=== PATIENT | male | born 1955 | race African-American/Black ===

== ENCOUNTER 2016-03-02 19:47 | Emergency (ER) | payer OTHER ==
[~2016-03-02] VITALS: Ht 175.3 cm; Wt 87.3 kg
--- NOTE | 2016-03-02 19:52 | ED.REPORT ---
HPI-Chest Pain 40 and Over Date of Service Mar 02, 2016 ED Provider: Melvin Miller DO A 61 year old male with a history of diabetes and no cardiac history is brought to the ED via EMS due to palpitations. The pt smoked an unknown substance with friends today when he suddenly felt palpitations and right flank pain. EMS arrived to find his heart rate at 150 in sinus tachycardia. His heart rate was approximately 100 upon arrival at the ED. The pt denies chest pain, shortness of breath, or dizziness, though he has been experiencing a cough recently. He believes that his symptoms are due to someone "slipping him something," and states that his symptoms "feel like a high." He denies a history of kidney stones. Nursing Notes Stated Complaint: PALPITATIONS Chief Complaint: General Complaint Nursing Notes Reviewed: Yes Allergies: Coded Allergies: No Known Allergies (Unverified , 03/02/16) General Time Seen by MD: 19:52 Chief Complaint Other (Palpitations) Hx Obtained From: Patient, EMS Arrived By: Ambulance Sudden in Onset?: Yes Onset Occurred: 31 - 45 minutes ago Recent Healthcare: No recent doctor visit, No recent hospitalization Similar Sx Previous: No Past Medical History Past Medical History diabetes Past Surgical History none reported Smoking History Current Every Day Smoker Social History admits to alcohol use lives in [place] Ambulatory Status Independent Review of Systems Constitutional: Denies: Fever Respiratory: Reports: Non-productive cough, Denies: Shortness of breath Cardiovascular: Reports: Palpitations, Denies: Chest pain GI: Denies: Abdominal pain, Nausea, Vomiting Musculoskeletal: Denies: Back pain, Neck pain Skin: Denies Rash Neurologic: Denies: Dizziness Complete sys rev & neg: except as marked. Female: Reports: Flank pain (right) Physical Exam Initial Vital Signs Vital Signs (First) Date Time Temp Pulse Resp B/P Pulse Ox O2 Delivery O2 Flow Rate FiO2 03/02/16 19:55 36.7 111 16 138/55 98 Room Air Initial VS: Reviewed Head / Eyes: Atraumatic ENT: Mucous membranes moist Neck: Supple, Non-tender, Full range of motion Back: No CVA tenderness Extremities: Vascular intact, No swelling Skin: Warm Neurologic: Alert Psychiatric: Mood/affect normal General/Constitutional: Awake, Alert Respiratory / Chest: Atraumatic, Breath sounds NL, Breath sounds = bilat, No respiratory distress Cardiovascular: Regular rhythm, Heart sounds NL Heart Rate / Rhythm: Positive: Tachycardia Abdomen: Atraumatic, Soft, Non-tender Neck: Atraumatic, Supple, Full range of motion Back: Atraumatic, Full range of motion Lower Extremity / Pelvis / MS: Atraumatic, Full range of motion Skin: Atraumatic, Color NL, No rash, Warm, Dry Neurologic: Oriented X3, Speech NL, No motor deficits, No sensory deficits Psychiatric: Affect NL, Mood NL Head / Eyes: Atraumatic, Normocephalic, PERRL, EOMI ENT: Atraumatic, Airway patent, Mucous membranes moist Upper Extremity / MS: Atraumatic, Full range of motion Interpretation & Diagnostics Lab Results Interpretation Result Diagram: 03/02/16 2004 03/02/16 2004 Test 03/02/16 20:04 03/02/16 21:18 03/02/16 23:15 White Blood Count 11.9th/mm3 (3.8-10.1) Red Blood Count 4.90mil/mm3 (4.40-5.80) Hemoglobin 14.2g/dL (13.8-17.2) Hematocrit 43.4% (41.0-50.0) Mean Corpuscular Volume 88.6fL (81-100) Mean Corpuscular Hemoglobin 29.0pg (27.0-35.0) Mean Corpuscular Hemoglobin Concent 32.7% (32.0-37.0) Red Cell Distribution Width 14.5% (12.3-15.4) Platelet Count 182bil/L (150-400) Neutrophils (%) (Auto) 72.5% (40-74) Lymphocytes (%) (Auto) 19.4% (14-46) Monocytes (%) (Auto) 7.4% (4-12) Eosinophils (%) (Auto) 0.2% (0-5) Basophils (%) (Auto) 0.2% (0-3) D-Dimer < 0.5mg/L (<0.50) Sodium Level 137mEq/L (134-144) Potassium Level 4.0mEq/L (3.5-5.2) Chloride Level 98mEq/L (97-108) Carbon Dioxide Level 24mmol/L (18-29) Blood Urea Nitrogen 12mg/dL (8-27) Creatinine 0.82mg/dL (0.76-1.27) Estimat Glomerular Filtration Rate 102mL/min (>59) Glucose Level 187mg/dL (60-99) Calcium Level 9.7mg/dL (8.5-10.1) Total Bilirubin 0.3mg/dL (0.0-1.2) Aspartate Amino Transf (AST/SGOT) 20U/L (0-50) Alanine Aminotransferase (ALT/SGPT) 21U/L (0-44) Alkaline Phosphatase 106U/L (25-160) Total Protein 8.1g/dL (6.4-8.4) Albumin 4.0g/dL (3.4-5.0) Thyroid Stimulating Hormone (TSH) 1.390uIU/mL (0.450-4.500) Hold Padilla Top Tube Received (Received) Urine Opiates Screen Negative Urine Methadone Screen Negative Urine Barbiturates Screen Negative Urine Amphetamines Screen Positive Urine Benzodiazepines Screen Negative Urine Cocaine Metabolite Screen Negative Urine Cannabinoids Screen Negative Troponin T 0.010ug/L (0.0-0.011) Pulse Oximetry Interpretation Pulse Oximetry Interpretation: 98% on room air Pulse Oximetry: Pulse Ox normal ECG Interpretation ECG Interpretation: sinus tachycardia with a rate of [address] segments no STEMI Time: 20:00 Interpreted by: ED physician Re-Eval/Medical Decision Med Decision/Clinical Course Mr. Pinto must of smokes something that had either amphetamines or methamphetamines. His drug screen is positive. He presented tachycardic and anxious. He is medicated with fluids and benzodiazepines. He did great. Symptoms resolved. He still mild anxiety but he was no longer tachycardic. Short course of Ativan prescribed for anxiety symptoms. OR and PE ruled out based on history and physical and diagnostics. Aortic dissection very unlikely based on history and physical diagnostics. Source of Hx: EMS Time of Eval: 23:57 Patient Status: Condition improved Re-Evaluation/Progress Note: Pt rechecked, who is awake and lucid. His lab results are discussed. Time of Eval: 00:36 Patient Status: Condition improved Re-Evaluation/Progress Note: Pt rechecked, who is comfortable and relaxed. Diagnosis and the plan for discharge are discussed. The pt understands and agrees with the plan. All questions are addressed at this time. Counseled Regarding: Diagnosis, Lab results, Need for follow-up, When/why to return to ED Discharge & Departure Primary Impression: Amphetamine abuse Additional Impression: Tachycardia Disposition: Home Discharge Condition All VS Reviewed: Yes Condition: Stable Patient Instructions: Methamphetamine Abuse (DC), Palpitations (ED) Additional Instructions: Your urine sample tested positive for methamphetamines. You were given methamphetamines tonight. It sounds like you smoked methamphetamines. Never abuse drugs. Your heart blood tests were normal. Stay well hydrated. Take one Ativan every 8 hours as needed for back spasms and anxiety. Do not drive tonight. Do not drive, drink alcohol, or take any sedating medications while taking the Ativan. Set up a follow-up with the [facility] residency clinic or with your primary care doctor. Return if any problems or any worsening symptoms. Referrals: [facility] Residency [facility] [place] Att[facility] Portions of this note were transcribed by Betty Vee I, Dr. Miller personally performed the history, physical exam and medical decision-making; I reviewed and confirmed the accuracy of the information in the transcribed note. Signed by: Segundo Rodrigues, 03/03/16 and 00:41. copies to: [facility] Residency [facility] Melvin Miller DO Mar 02, 2016 19:52 BETTY VEE Mar 02, 2016 20:12
[2016-03-02 19:55] VITALS: BP 138/55; PULSE 111; RESP 16; O2SAT 98
[2016-03-02] MEDS ORDERED: 0.9% Sodium Chloride 1,000 ML IV SCH (20:20)
[2016-03-02 20:21] LABS: BASOPHILS % (AUTO) 0.2 % (0-3); EOSINOPHILS % (AUTO) 0.2 % (0-5); MONOCYTES % (AUTO) 7.4 % (4-12); Mean Corpuscular Volume 88.6 fL (81-100); NEUTROPHILS % (AUTO) 72.5 % (40-74); Platelet Count 182 bil/L (150-400)
[2016-03-02 20:51] LABS: TROPONIN T < 0.010 ug/L (0.0-0.011)
[2016-03-02 21:18] VITALS: BP 141/78; PULSE 87; RESP 16; O2SAT 97
[2016-03-02 21:56] VITALS: BP 148/81; PULSE 77; RESP 16; O2SAT 97
[2016-03-02 23:33] VITALS: BP 143/80; PULSE 89; RESP 16; O2SAT 95
[2016-03-03 00:42] VITALS: BP 143/80; PULSE 89; RESP 16; O2SAT 95
== END 2016-03-03 00:43 | disposition home or self-care (01) ==
LOC: SED 19:47 → EDBD 19:47 → SED 03-03 00:43
DX: F15.10 Other stimulant abuse, uncomplicated (principal); R00.0 Tachycardia, unspecified; R10.31 Right lower quadrant pain; R05 Cough; E11.9 Type 2 diabetes mellitus without complications; F17.200 Nicotine dependence, unspecified, uncomplicated
CPT/HCPCS: 36415; 80053; 81002; 82948; 84443; 84484; 85025; 85379; 93005; 96361; 96374; 99285; G0480; J2060; J7030